=== PATIENT | male | born 1940 ===

== ENCOUNTER 2021-03-06 22:03 | Inpatient (IN) | payer MEDICARE, OTHER ==
[2021-03-07] MEDS ORDERED: Albumin 25% 100 ML ONE (08:10)
[2021-03-07] MEDS ORDERED: Ondansetron PF 4 MG/2 ML Vial IVP PRN (08:15)
[2021-03-07] MEDS ORDERED: VANCOMYCIN IVPB PRN ×2 (08:15→09:13)
[2021-03-07] MEDS ORDERED: Sodium Chloride 0.9% 1,000 ML IV SCH (08:15)
[2021-03-07] MEDS ORDERED: Sodium Chloride 0.9% 500 ML IV SCH ×2 (08:15→15:30)
[2021-03-07] MEDS ORDERED: Albumin 25% 25 GM/100 ML BOT IVPB SCH (09:00)
[2021-03-07] MEDS: Pantoprazole 40 MG VIAL IVP SCH ×2 (09:27→20:48)
[2021-03-07] MEDS ORDERED: Cefepime 2 GM in Sodium Chloride 0.9% 100 ML IVPB SCH (10:00)
[2021-03-07 10:03] LABS: ALT (SGPT) 35 U/L (8-55); AST (SGOT) 51 U/L (5-34); Albumin 2.2 g/dL (3.4-4.8); Alkaline Phosphatase 71 U/L (40-110); Anion Gap 13 mmol/L (10-20); BUN (Urea Nitrogen) 75 mg/dL (8.4-25.7); Bilirubin, Total 2.9 mg/dL (0.2-1.2); Calc. Creatinine Clearance 72 mL/min (70-130); Carbon Dioxide 20 mmol/L (23-31); Chloride 112 mmol/L (98-107); Glucose 102 mg/dL (83-110); Potassium 4.6 mmol/L (3.5-5.1); Protein, Total 5.2 g/dL (5.8-8.1); Sodium 140 mmol/L (136-145)
[2021-03-07 10:04] LABS: #Eosinphils 0.2 thou/uL (0.0-0.7); #Lymphocytes 2.6 thou/uL (1.20-3.40); #Monocytes 0.9 thou/uL (0.11-0.59); #Neutrophils 9.2 thou/uL (1.40-6.50); %Basophils 0.2 % (0.0-1.0); %Eosinophils 1.5 % (0.0-10.0); %Lymphocytes 19.9 % (21.0-51.0); %Monocytes 7.1 % (0.0-10.0); %Neutrophils 71.4 % (42.0-75.0); Hemoglobin 8.6 g/dL (14.0-18.0); Hypochromia SLIGHT = 6-15 cells (100X) (0-5/hpf); MDiff Complete? YES; Mean Corpuscular HGB CONC 31.5 g/dL (32.0-36.0); Mean Corpuscular Hemoglobin 29.9 pg (27.0-31.0); Mean Corpuscular Volume 95.2 fL (78.0-98.0); Mean Platelet Volume 10.2 fL (7.4-10.4); Platelet Count 97 thou/uL (130-400); Platelet Morphology Comment Appears Decreased; Polychromasia SLIGHT = 2-3 cells (100X) (0-2/hpf); RBC Distribution Width 16.8 % (11.5-14.5); Red Blood Cell (RBC) Count 2.87 mill/uL (4.70-6.10); White Blood Cell (WBC) Count 12.9 thou/uL (4.8-10.8)
[2021-03-07] MEDS: Vancomycin 1.5 GRAM/300 ML BAG 1.5 GM in Premix Bag 1 BAG IVPB SCH (12:30)
[2021-03-07] MEDS: Albumin 25% 25 GM/100 ML BOT IVPB SCH ×3 (12:31→23:33)
[2021-03-07] MEDS: Sodium Chloride 0.9% 1,000 ML IV SCH ×2 (16:33→20:48)
[2021-03-07] MEDS ORDERED: Fentanyl 100 MCG/2 ML VIAL ONE (17:08)
[2021-03-07] MEDS ORDERED: Ketamine 50 MG/ML (10ML VIAL) ONE (17:26)
[2021-03-07] MEDS ORDERED: Phenylephrine 10 MG/ML VIAL ONE (17:48)
[2021-03-07 17:55] LABS: Bacteria/HPF None Seen HPF (None Seen); Bilirubin Negative (Negative); Blood, Urine Trace (Negative); Clarity Clear (Clear); Glucose, Urine (Dipstick) Normal (Negative); Ketone, Urine Negative (Negative); Leukocyte Negative Leu/uL (Negative); Nitrite Negative (Negative); Protein, Urine (Dipstick) Negative (Neg-Trace); RBC/HPF 0-3 HPF (0-3); Specific Gravity, Urine 1.013 (1.002-1.036); Squamous Epithelial None Seen HPF (0-3); Urobilinogen Normal mg/dL (Less than 2); WBC/HPF 0-3 HPF (0-3); pH, Urine 6.5 (5.0-9.0)
[2021-03-07] MEDS ORDERED: Ondansetron HCl/PF 4 MG/2 ML Vial IVP PRN (18:02)
[2021-03-07] MEDS ORDERED: Promethazine HCl 25 MG/ML VIAL IVPB PRN (18:02)
[2021-03-07] MEDS ORDERED: Promethazine HCl 25 MG/ML VIAL IM PRN (18:02)
[2021-03-07 20:15] LABS: Hemoglobin 7.6 g/dL (14.0-18.0)
[2021-03-07] MEDS: Cefepime 2 GM in Sodium Chloride 0.9% 100 ML IVPB SCH (23:32)
[2021-03-08 03:38] LABS: #Eosinphils 0.2 thou/uL (0.0-0.7); #Lymphocytes 1.9 thou/uL (1.20-3.40); #Monocytes 0.6 thou/uL (0.11-0.59); %Basophils 0.1 % (0.0-1.0); %Eosinophils 2.4 % (0.0-10.0); %Lymphocytes 21.4 % (21.0-51.0); %Monocytes 7.3 % (0.0-10.0); %Neutrophils 68.8 % (42.0-75.0); Hemoglobin 7.8 g/dL (14.0-18.0); Mean Corpuscular HGB CONC 31.3 g/dL (32.0-36.0); Mean Corpuscular Hemoglobin 30.4 pg (27.0-31.0); Mean Corpuscular Volume 97.1 fL (78.0-98.0); Platelet Count 85 thou/uL (130-400); RBC Distribution Width 17.4 % (11.5-14.5); Red Blood Cell (RBC) Count 2.55 mill/uL (4.70-6.10); White Blood Cell (WBC) Count 8.7 thou/uL (4.8-10.8)
[2021-03-08 04:16] LABS: ALT (SGPT) 28 U/L (8-55); AST (SGOT) 41 U/L (5-34); Alkaline Phosphatase 57 U/L (40-110); Anion Gap 14 mmol/L (10-20); BUN (Urea Nitrogen) 53 mg/dL (8.4-25.7); Bilirubin, Total 4.2 mg/dL (0.2-1.2); Calc. Creatinine Clearance 93 mL/min (70-130); Calcium 8.4 mg/dL (7.8-10.44); Carbon Dioxide 19 mmol/L (23-31); Chloride 114 mmol/L (98-107); Globulin 2.5 g/dL (2.4-3.5); Glucose 91 mg/dL (83-110); Potassium 4.4 mmol/L (3.5-5.1); Protein, Total 5.5 g/dL (5.8-8.1); Sodium 143 mmol/L (136-145)
[2021-03-08] MEDS: Albumin 25% 25 GM/100 ML BOT IVPB SCH ×3 (06:14→22:04)
[2021-03-08] MEDS: Sodium Chloride 0.9% 1,000 ML IV SCH ×2 (06:14→15:05)
[2021-03-08] MEDS: Pantoprazole 40 MG VIAL IVP SCH (09:38)
[2021-03-08] MEDS: Cefepime 2 GM in Sodium Chloride 0.9% 100 ML IVPB SCH ×2 (09:46→21:07)
[2021-03-08] MEDS: Vancomycin 1.5 GRAM/300 ML BAG 1.5 GM in Premix Bag 1 BAG IVPB SCH (14:11)
[2021-03-08] MEDS: Metoprolol Tartrate 25 MG TAB PO SCH (21:02)
[2021-03-08] MEDS: Melatonin 3 MG TAB PO PRN (23:08)
[2021-03-09] MEDS: Acetaminophen 325 MG TAB PO PRN (01:21)
[2021-03-09] MEDS: Albumin 25% 25 GM/100 ML BOT IVPB SCH ×3 (02:50→17:32)
[2021-03-09 04:50] LABS: INR-International Normal Ratio 1.8; PTT 36.1 sec (22.9-36.1); Prothrombin Time 21.6 sec (12.0-14.7)
[2021-03-09 04:52] LABS: ALT (SGPT) 22 U/L (8-55); AST (SGOT) 33 U/L (5-34); Albumin 3.3 g/dL (3.4-4.8); Alkaline Phosphatase 55 U/L (40-110); Anion Gap 14 mmol/L (10-20); BUN (Urea Nitrogen) 39 mg/dL (8.4-25.7); Bilirubin, Direct 2.1 mg/dL (0.1-0.3); Bilirubin, Total 3.9 mg/dL (0.2-1.2); Calc. Creatinine Clearance 93 mL/min (70-130); Calcium 8.2 mg/dL (7.8-10.44); Carbon Dioxide 18 mmol/L (23-31); Chloride 113 mmol/L (98-107); Glucose 94 mg/dL (83-110); Magnesium 1.9 mg/dL (1.6-2.6); Potassium 3.7 mmol/L (3.5-5.1); Protein, Total 5.5 g/dL (5.8-8.1); Sodium 141 mmol/L (136-145)
[2021-03-09 05:31] LABS: Burr Cells SLIGHT = 2-5 cells (100X) (0-1/hpf); Hemoglobin 6.6 g/dL (14.0-18.0); Hypochromia SLIGHT = 6-15 cells (100X) (0-5/hpf); Lymphocytes 25 % (21-51); MDiff Complete? YES; Mean Corpuscular HGB CONC 31.2 g/dL (32.0-36.0); Mean Corpuscular Hemoglobin 29.9 pg (27.0-31.0); Mean Corpuscular Volume 95.8 fL (78.0-98.0); Mean Platelet Volume 9.7 fL (7.4-10.4); Monocytes 4 % (0-10); Neutrophil 71 % (42-75); Platelet Count 52 thou/uL (130-400); Platelet Morphology Comment Appears Decreased; Polychromasia SLIGHT = 2-3 cells (100X) (0-2/hpf); Red Blood Cell (RBC) Count 2.22 mill/uL (4.70-6.10); White Blood Cell (WBC) Count 4.5 thou/uL (4.8-10.8)
[2021-03-09] MEDS ORDERED: Electrolyte Replacement Protocol 1 EACH FS SCH (08:00)
[2021-03-09] MEDS ORDERED: Magnesium 2 GM/50 ML 2 GM in Premix Bag 1 BAG IVPB SCH (08:30)
[2021-03-09] MEDS ORDERED: Electrolyte Replacement Protocol FS PRN (08:30)
[2021-03-09] MEDS ORDERED: Folic Acid 1 MG TAB PO SCH (09:00)
[2021-03-09] MEDS: Folic Acid 1 MG TAB PO SCH (09:01)
[2021-03-09] MEDS: Multivit, Therapeutic 1 TAB PO SCH (09:01)
[2021-03-09] MEDS: Metoprolol Tartrate 25 MG TAB PO SCH ×3 (09:02→21:27)
[2021-03-09] MEDS: pyridOXINE 50 MG (B6) TAB PO SCH (09:02)
[2021-03-09] MEDS: Saccharomyces boulardii 250 MG CAP PO SCH (09:02)
[2021-03-09 09:49] VITALS: BMI 29.9
[2021-03-09] MEDS: PHOS-NAK 1 PKT PACK PO SCH ×2 (09:58→11:41)
[2021-03-09] MEDS: Phytonadione 5 MG TAB PO SCH (09:59)
[2021-03-09] MEDS ORDERED: cefTRIAXone\\ROCEPHIN 2 GM in Sodium Chloride 0.9% 100 ML IVPB SCH (12:00)
[2021-03-09] MEDS: Sodium Chloride 0.9% 1,000 ML IV SCH (12:53)
[2021-03-09 19:57] LABS: Hemoglobin 8.5 g/dL (14.0-18.0); Platelet Count 85 thou/uL (130-400)
[2021-03-09] MEDS: cefTRIAXone\\ROCEPHIN 2 GM in Sodium Chloride 0.9% 100 ML IVPB SCH (21:35)
[2021-03-10 04:51] LABS: #Eosinphils 0.1 thou/uL (0.0-0.7); #Lymphocytes 2.6 thou/uL (1.20-3.40); #Monocytes 0.5 thou/uL (0.11-0.59); %Basophils 0.3 % (0.0-1.0); %Eosinophils 0.8 % (0.0-10.0); %Lymphocytes 28.4 % (21.0-51.0); %Monocytes 5.1 % (0.0-10.0); %Neutrophils 65.3 % (42.0-75.0); Hemoglobin 8.6 g/dL (14.0-18.0); Mean Corpuscular HGB CONC 31.9 g/dL (32.0-36.0); Mean Corpuscular Hemoglobin 30.8 pg (27.0-31.0); Mean Corpuscular Volume 96.4 fL (78.0-98.0); Mean Platelet Volume 10.4 fL (7.4-10.4); Platelet Count 82 thou/uL (130-400); RBC Distribution Width 17.2 % (11.5-14.5); Red Blood Cell (RBC) Count 2.78 mill/uL (4.70-6.10); White Blood Cell (WBC) Count 9.1 thou/uL (4.8-10.8)
[2021-03-10 05:06] LABS: ALT (SGPT) 23 U/L (8-55); AST (SGOT) 40 U/L (5-34); Albumin 3.4 g/dL (3.4-4.8); Alkaline Phosphatase 68 U/L (40-110); Anion Gap 16 mmol/L (10-20); BUN (Urea Nitrogen) 35 mg/dL (8.4-25.7); Bilirubin, Total 3.7 mg/dL (0.2-1.2); Calc. Creatinine Clearance 92 mL/min (70-130); Calcium 8.4 mg/dL (7.8-10.44); Carbon Dioxide 17 mmol/L (23-31); Chloride 112 mmol/L (98-107); Globulin 2.6 g/dL (2.4-3.5); Glucose 101 mg/dL (83-110); Magnesium 2.3 mg/dL (1.6-2.6); Phosphorus 2.2 mg/dL (2.3-4.7); Potassium 4.3 mmol/L (3.5-5.1); Sodium 141 mmol/L (136-145)
[2021-03-10] MEDS: Phytonadione 5 MG TAB PO SCH ×2 (09:34→10:48)
[2021-03-10] MEDS: Metoprolol Tartrate 25 MG TAB PO SCH ×3 (09:35→20:11)
[2021-03-10] MEDS: Folic Acid 1 MG TAB PO SCH ×2 (09:35→10:48)
[2021-03-10] MEDS: Saccharomyces boulardii 250 MG CAP PO SCH ×2 (09:35→10:48)
[2021-03-10] MEDS: pyridOXINE 50 MG (B6) TAB PO SCH ×2 (09:36→10:48)
[2021-03-10] MEDS: Multivit, Therapeutic 1 TAB PO SCH ×2 (09:36→10:48)
[2021-03-10] MEDS: cefTRIAXone\\ROCEPHIN 2 GM in Sodium Chloride 0.9% 100 ML IVPB SCH ×2 (20:12→22:15)
[2021-03-10 23:30] LABS: SARS-CoV-2 PCR by NAA Not Detected (NotDetected)
[2021-03-11] MEDS: pyridOXINE 50 MG (B6) TAB PO SCH (09:28)
[2021-03-11] MEDS: Phytonadione 5 MG TAB PO SCH (09:28)
[2021-03-11] MEDS: Multivit, Therapeutic 1 TAB PO SCH (09:29)
[2021-03-11] MEDS: Folic Acid 1 MG TAB PO SCH (09:29)
[2021-03-11] MEDS: Saccharomyces boulardii 250 MG CAP PO SCH (09:29)
[2021-03-11] MEDS: Metoprolol Tartrate 25 MG TAB PO SCH ×2 (09:29→20:02)
[2021-03-11] MEDS: cefTRIAXone\\ROCEPHIN 2 GM in Sodium Chloride 0.9% 100 ML IVPB SCH (20:02)
[2021-03-11] MEDS: Melatonin 3 MG TAB PO PRN (20:02)
[2021-03-12] MEDS: Folic Acid 1 MG TAB PO SCH (09:59)
[2021-03-12] MEDS: Saccharomyces boulardii 250 MG CAP PO SCH (10:00)
[2021-03-12] MEDS: Metoprolol Tartrate 25 MG TAB PO SCH ×2 (10:00→21:03)
[2021-03-12] MEDS: Multivit, Therapeutic 1 TAB PO SCH (10:00)
[2021-03-12] MEDS: Phytonadione 5 MG TAB PO SCH (10:00)
[2021-03-12] MEDS: pyridOXINE 50 MG (B6) TAB PO SCH (10:00)
[2021-03-12 16:24] LABS: #Eosinphils 0.1 thou/uL (0.0-0.7); #Lymphocytes 2.6 thou/uL (1.20-3.40); #Monocytes 0.7 thou/uL (0.11-0.59); #Neutrophils 3.9 thou/uL (1.40-6.50); %Basophils 0.2 % (0.0-1.0); %Eosinophils 1.4 % (0.0-10.0); %Lymphocytes 35.5 % (21.0-51.0); %Monocytes 10.1 % (0.0-10.0); %Neutrophils 52.8 % (42.0-75.0); Hemoglobin 8.6 g/dL (14.0-18.0); Mean Corpuscular Hemoglobin 30.8 pg (27.0-31.0); Mean Corpuscular Volume 96.4 fL (78.0-98.0); Mean Platelet Volume 10.4 fL (7.4-10.4); Platelet Count 67 thou/uL (130-400); RBC Distribution Width 17.2 % (11.5-14.5); Red Blood Cell (RBC) Count 2.78 mill/uL (4.70-6.10); White Blood Cell (WBC) Count 7.3 thou/uL (4.8-10.8)
[2021-03-12 16:41] LABS: Anion Gap 12 mmol/L (10-20); BUN (Urea Nitrogen) 22 mg/dL (8.4-25.7); Calc. Creatinine Clearance 96 mL/min (70-130); Carbon Dioxide 22 mmol/L (23-31); Chloride 107 mmol/L (98-107); Glucose 106 mg/dL (83-110); Potassium 3.9 mmol/L (3.5-5.1); Sodium 137 mmol/L (136-145)
[2021-03-12] MEDS: cefTRIAXone\\ROCEPHIN 2 GM in Sodium Chloride 0.9% 100 ML IVPB SCH (21:03)
[2021-03-13] MEDS ORDERED: diphenhydrAMINE 50 MG/ML VIAL IVP SCH ×2 (02:15→03:26)
[2021-03-13] MEDS: Folic Acid 1 MG TAB PO SCH (08:57)
[2021-03-13] MEDS: Saccharomyces boulardii 250 MG CAP PO SCH (08:57)
[2021-03-13] MEDS: pyridOXINE 50 MG (B6) TAB PO SCH (08:57)
[2021-03-13] MEDS: Metoprolol Tartrate 25 MG TAB PO SCH (08:57)
[2021-03-13] MEDS: Multivit, Therapeutic 1 TAB PO SCH (08:57)
[2021-03-13] MEDS: Acetaminophen 325 MG TAB PO PRN (12:56)
[2021-03-13 13:33] VITALS: BP 135/72; TEMP 97.9
== END 2021-03-13 13:46 | DRG 378 ==
LOC: IMCU/EMU 03-07 07:13 → 2NO 03-08 18:07
PROVIDERS: ADMIT Student in an Organized Health Care Education/Training Program; ATTEND Internal Medicine
PROC: 0DJ08ZZ Inspection of Upper Intestinal Tract, Via Natural or Artificial Opening Endoscopic (ICD-10-PCS; principal; 2021-03-07)
PROC: 30233N1 Transfusion of Nonautologous Red Blood Cells into Peripheral Vein, Percutaneous Approach (ICD-10-PCS; 2021-03-09)
DX: K92.2 Gastrointestinal hemorrhage, unspecified (principal); L03.116 Cellulitis of left lower limb; E87.2 Acidosis; D62 Acute posthemorrhagic anemia; J90 Pleural effusion, not elsewhere classified; Z20.822 Contact with and (suspected) exposure to COVID-19; F03.90 Unspecified dementia, unspecified severity, without behavioral disturbance, psychotic disturbance, mood disturbance, and anxiety; I48.91 Unspecified atrial fibrillation; Z66 Do not resuscitate; F91.9 Conduct disorder, unspecified; E88.09 Other disorders of plasma-protein metabolism, not elsewhere classified; E83.42 Hypomagnesemia; D69.6 Thrombocytopenia, unspecified; R60.1 Generalized edema; N18.2 Chronic kidney disease, stage 2 (mild); K74.60 Unspecified cirrhosis of liver; I12.9 Hypertensive chronic kidney disease with stage 1 through stage 4 chronic kidney disease, or unspecified chronic kidney disease; Z79.01 Long term (current) use of anticoagulants; Z90.49 Acquired absence of other specified parts of digestive tract; Z79.899 Other long term (current) drug therapy; Z78.1 Physical restraint status
CPT/HCPCS: 36415; 36430; 71045; 80048; 80053; 80076; 81001; 82140; 82607; 82746; 83735; 84100; 85025; 85610; 85730; 86850; 86900; 86901; 93005; 93010; 93970; C9113; J0692; J0696; J1200; J2370; J3010; J3370; J3475; J3490; J7030; J7050; P9016; P9047; U0003; U0005